=== PATIENT | female | born 1950 | race Hispanic/Latino ===

== ENCOUNTER 2016-12-28 07:50 | Outpatient (CLI) | payer MEDICARE, OTHER ==
--- NOTE | 2016-12-28 14:32 | Mammography Report ---
RIGHT DIGITAL SCREENING MAMMOGRAM with CAD: 12/28/16 07:50:00 CLINICAL: Routine screening. Breast cancer survivor status post left mastectomy in 2010. COMPARISON:11/30/15 FINDINGS: The breast is heterogeneously dense, which may obscure small masses. A few benign calcifications.No mass, suspicious architectural distortion or suspicious calcifications. IMPRESSION: No mammographic evidence of malignancy. BI-RADS CATEGORY: 2 -- Benign RECOMMENDATION: Routine screening in one year. ACR BI-RADS MAMMOGRAPHIC CODES: 0 = Needs additional imaging evaluation; 1 = Negative; 2 = Benign; 3 = Probably benign; 4 = Suspicious; 5 = Malignant; 6 = Known biopsy-proven malignancy COMMENT: 1. Dense breast tissue, i.e., adenosis, fibrocystic changes, etc., may obscure an underlying neoplasm. 2. Approximately 10% of cancers are not detected with mammography. 3. A negative mammography report should not delay biopsy if a clinically suspicious mass is present. COMMENT: Patient follow-up letters are generated via our [employer] application.
== END 2016-12-28 07:51 | disposition home or self-care (01) ==
LOC: MAMMO 07:50
PROVIDERS: ATTEND Internal Medicine
DX: Z12.31 Encounter for screening mammogram for malignant neoplasm of breast (principal)
CPT/HCPCS: G0202-52

== ENCOUNTER 2017-12-31 09:16 | Outpatient (CLI) | payer MEDICARE, OTHER ==
--- NOTE | 2017-12-31 14:24 | Mammography Report ---
RIGHT DIGITAL SCREENING MAMMOGRAM : 12/31/17 09:16:00 CLINICAL: Routine screening. Breast cancer survivor status post left mastectomy. COMPARISON:12/28/16 FINDINGS: The breast is heterogeneously dense, which may obscure small masses. A few benign calcifications and stable mild skin thickening of the inferior breast.No mass, architectural distortion or suspicious calcifications. IMPRESSION: No mammographic evidence of malignancy. BI-RADS CATEGORY: 2 -- Benign RECOMMENDATION: Routine screening in one year. ACR BI-RADS MAMMOGRAPHIC CODES: 0 = Needs additional imaging evaluation; 1 = Negative; 2 = Benign; 3 = Probably benign; 4 = Suspicious; 5 = Malignant; 6 = Known biopsy-proven malignancy COMMENT: 1. Dense breast tissue, i.e., adenosis, fibrocystic changes, etc., may obscure an underlying neoplasm. 2. Approximately 10% of cancers are not detected with mammography. 3. A negative mammography report should not delay biopsy if a clinically suspicious mass is present. COMMENT: Patient follow-up letters are generated via our [employer] application.
== END 2017-12-31 09:17 | disposition home or self-care (01) ==
LOC: MAMMO 09:16
PROVIDERS: ATTEND Internal Medicine
DX: Z12.31 Encounter for screening mammogram for malignant neoplasm of breast (principal)

== ENCOUNTER 2019-01-01 08:29 | Outpatient (CLI) | payer MEDICARE, OTHER ==
--- NOTE | 2019-01-01 10:01 | Mammography Report ---
Screening right mammogram: Cancer survivor with left mastectomy. Routine views of the right breast demonstrates an intermediate fibroglandular pattern with no suspicious findings and no interval changes when compared to prior exams dating back to December 2016. CAD used. Impression: Stable right mammogram. Recommendation: Annual mammogram followup. BI-RADS CATEGORY: 1 = Negative ACR BI-RADS MAMMOGRAPHIC CODES: 0 = Needs additional imaging evaluation; 1 = Negative; 2 = Benign; 3 = Probably benign; 4 = Suspicious; 5 = Malignant; 6 = Known biopsy-proven malignancy COMMENT: 1. Dense breast tissue, i.e., adenosis, fibrocystic changes, etc., may obscure an underlying neoplasm. 2. Approximately 10% of cancers are not detected with mammography. 3. A negative mammography report should not delay biopsy if a clinically suspicious mass is present.
== END 2019-01-01 08:30 | disposition home or self-care (01) ==
LOC: MAMMO 08:29
PROVIDERS: ATTEND Internal Medicine
DX: Z12.31 Encounter for screening mammogram for malignant neoplasm of breast (principal)

== ENCOUNTER 2019-03-24 08:41 | Outpatient (CLI) | payer MEDICARE, OTHER ==
--- NOTE | 2019-03-24 12:28 | Nuclear Medicine Report ---
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 TECHNIQUE: 25 mCi of Tc-99m MDP were injected IV. Whole body images were obtained. COMPARISON: No relevant prior imaging study available. FINDINGS: Skeletal Structures: Symmetric and homogeneous uptake. Mild degenerative uptake in the shoulders, kne es and ankles.. Skeletal Lesions: None. Soft Tissues: Normal. Kidneys: Normal, symmetric activity. Additional Findings: None. IMPRESSION: No evidence for metastatic disease to the bones on bone scan.. Signer Name: Kristopher Hartley Jr, MD Signed: 03/24/2019 12:24 PM Workstation Name: [id number]
== END 2019-03-24 08:42 | disposition home or self-care (01) ==
LOC: NM 08:41
PROVIDERS: ATTEND Internal Medicine Hematology & Oncology
DX: C50.412 Malignant neoplasm of upper-outer quadrant of left female breast (principal); I10 Essential (primary) hypertension
CPT/HCPCS: 78306; A9503

== ENCOUNTER 2020-02-01 08:58 | Outpatient (CLI) | payer MEDICARE, OTHER ==
--- NOTE | 2020-02-01 09:54 | Mammography Report ---
DIGITAL SCREENING MAMMOGRAM WITH CAD, 02/01/2020 INDICATION: Routine screening mammography. TECHNIQUE: Digital right 2D mammography was obtained in the craniocaudal and mediolateral oblique pr ojections. This examination was interpreted with the benefit of Computer-Aided Detection analysis. COMPARISON: 01/01/2019, 12/31/2017 FINDINGS: Breast Density: There are scattered areas of fibroglandular density. There is no evidence of dominant mass, suspicious calcifications or architectural distortion in the r ight breast. No interval change. IMPRESSION: No evidence of malignancy. Follow up recommendation: Routine yearly BI-RADS Category 1: Negative. A "normal" or negative report should not discourage follow up or biopsy of a clinically significant f inding. A written summary of these findings will be mailed to the patient. The patient will be entered into a mammography reporting system which will generate a reminder letter for the patient's next appointmen t at the appropriate interval. The [employer] recommends yearly mammograms starting at age 40 and continuing as l rhonda as a woman is in good health. Breast MRI is recommended for women with an approximate 20-25% or greater lifetime risk of breast cancer, including women with a strong family history of breast or ova michelle cancer or who have been treated for Hodgkin's disease. Signer Name: Briseyda Moreno MD Signed: 02/01/2020 9:50 AM Workstation Name: [id number]
== END 2020-02-01 08:59 | disposition home or self-care (01) ==
LOC: MAMMO 08:58
PROVIDERS: ATTEND Internal Medicine
DX: Z12.31 Encounter for screening mammogram for malignant neoplasm of breast (principal); N64.89 Other specified disorders of breast

== ENCOUNTER 2021-02-01 08:50 | Outpatient (CLI) | payer MEDICARE, OTHER ==
--- NOTE | 2021-02-01 15:31 | Mammography Report ---
DIGITAL SCREENING MAMMOGRAM WITH CAD, 02/01/2021 CLINICAL INFORMATION / INDICATION: Routine screening mammography. Left mastectomy. TECHNIQUE: Digital right 2D mammography was obtained in the craniocaudal and mediolateral oblique pr ojections. This examination was interpreted with the benefit of Computer-Aided Detection analysis. COMPARISON: 02/01/20, 01/01/19 FINDINGS: Breast Density: There are scattered areas of fibroglandular density. No dominant mass, suspicious calcifications, or architectural distortion in either breast. IMPRESSION: No mammographic evidence of malignancy. No significant change. Follow up recommendation: Routine yearly BI-RADS Category 1: Negative. A "normal" or negative report should not discourage follow up or biopsy of a clinically significant f inding. A written summary of these findings will be mailed to the patient. The patient will be entered into a mammography reporting system which will generate a reminder letter for the patient's next appointmen t at the appropriate interval. The [employer] recommends yearly mammograms starting at age 40 and continuing as l rhonda as a woman is in good health. Breast MRI is recommended for women with an approximate 20-25% or greater lifetime risk of breast cancer, including women with a strong family history of breast or ova michelle cancer or who have been treated for Hodgkin's disease. Signer Name: Valencia Nuñez MD Signed: 02/01/2021 3:27 PM Workstation Name: [id number]
== END 2021-02-01 08:51 | disposition home or self-care (01) ==
LOC: MAMMO 08:50
PROVIDERS: ATTEND Internal Medicine
DX: Z12.31 Encounter for screening mammogram for malignant neoplasm of breast (principal); N64.89 Other specified disorders of breast

== ENCOUNTER 2021-03-28 08:54 | Outpatient (CLI) | payer MEDICARE, OTHER ==
--- NOTE | 2021-03-28 11:07 | Ultrasound Report ---
US soft tissue head and neck INDICATION / CLINICAL INFORMATION: SWELLING BILATERAL CLAVICLE. COMPARISON: None FINDINGS: Along the left clavicle there is a borderline enlarged lymph node measuring approximately 0.9 x 0.6 x 0.8 cm which demonstrates mildly thickened cortex measuring 3 mm. Otherwise imaging of the bilateral supraclavicular region demonstrates normal subcutaneous echotexture without evidence of mass, focal fluid collection or adenopathy. Incidental scanning of the thyroid gland demonstrates multiple subcentimeter nodules. IMPRESSION: 1. There is a borderline enlarged lymph node along the left supraclavicular region which demonstrates a mildly thickened cortex up to 3 mm. This is nonspecific and may be reactive. Recommend follow-up u ltrasound of the left supraclavicular region in 6 months to assess change. Signer Name: Ayaan Waters DO Signed: 03/28/2021 11:01 AM Workstation Name: [id number]
--- NOTE | 2021-03-29 07:43 | Mammography Report ---
RIGHT DIGITAL DIAGNOSTIC MAMMOGRAM WITH CAD CONVENTIONAL, 03/28/2021 RIGHT LIMITED BREAST ULTRASOUND CLINICAL INFORMATION / INDICATION: Pain RIGHT BREAST HARDNESS TECHNIQUE: Digital right mammographic imaging was performed. Limited ultrasound was performed. This e xamination was interpreted with the benefit of Computer-Aided Detection (CAD) analysis. COMPARISON: 02/01/2021, 02/01/2020 FINDINGS: Breast Density: There are scattered areas of fibroglandular density. MAMMOGRAPHIC FINDINGS: No dominant mass, suspicious calcifications, or architectural distortion in ei ther breast. ULTRASOUND FINDINGS: Targeted ultrasound evaluation was performed of the area of interest. Sonograp hic evaluation of the right breast in the areas of concern demonstrate normal fibroglandular tissue w ithout evidence of mass, focal fluid collection or adenopathy. IMPRESSION: No mammographic or sonographic evidence of malignancy. Follow up recommendation: Routine yearly BI-RADS Category 1: Negative. A "normal" or negative report should not discourage follow up or biopsy of a clinically significant f inding. A written summary of these findings will be mailed to the patient. The patient will be entered into a mammography reporting system which will generate a reminder letter for the patient's next appointmen t at the appropriate interval. According to the [employer], yearly mammograms are recommended starting at age 40 and continuing as long as a woman is in good health. Breast MRI is recommended for women with an emilie roximately 20-25% or greater lifetime risk of breast cancer, including women with a strong family his tory of breast or ovarian cancer and women who have been treated for Hodgkin's disease. Signer Name: Ayaan Waters DO Signed: 03/29/2021 7:39 AM Workstation Name: [id number]
== END 2021-03-28 08:55 | disposition home or self-care (01) ==
LOC: US 08:54
PROVIDERS: ATTEND Internal Medicine Hematology & Oncology
DX: C50.412 Malignant neoplasm of upper-outer quadrant of left female breast (principal); E04.2 Nontoxic multinodular goiter; I10 Essential (primary) hypertension
CPT/HCPCS: 76536

== ENCOUNTER 2021-09-07 12:38 | Outpatient (CLI) | payer MEDICARE, OTHER ==
--- NOTE | 2021-09-07 13:29 | XRay Report ---
CHEST 2 VIEWS INDICATION / CLINICAL INFORMATION: COUGH. COMPARISON: Chest x-ray 03/11/2011 FINDINGS: SUPPORT DEVICES: Catheter along the left aortic margin demonstrates little change in position. HEART / MEDIASTINUM: No significant abnormality. LUNGS / PLEURA: No significant pulmonary or pleural abnormality. No pneumothorax. ADDITIONAL FINDINGS: No significant additional findings. IMPRESSION: 1. No active cardiopulmonary disease. 2. Stable positioning of catheter fragment along the left margin of the aorta. Signer Name: Rodo Bean II, MD Signed: 09/07/2021 1:24 PM Workstation Name: [id number]
== END 2021-09-07 12:39 | disposition home or self-care (01) ==
LOC: XRAY 12:38
PROVIDERS: ATTEND Internal Medicine Hematology & Oncology
DX: C50.412 Malignant neoplasm of upper-outer quadrant of left female breast (principal); M81.0 Age-related osteoporosis without current pathological fracture; I10 Essential (primary) hypertension; R07.81 Pleurodynia; R22.9 Localized swelling, mass and lump, unspecified; Z17.0 Estrogen receptor positive status [ER+]
CPT/HCPCS: 71046

== ENCOUNTER 2022-02-02 09:12 | Outpatient (CLI) | payer MEDICARE, OTHER ==
--- NOTE | 2022-02-05 18:14 | Mammography Report ---
DIGITAL SCREENING MAMMOGRAM WITH CAD, 02/02/2022 CLINICAL INFORMATION / INDICATION: Routine screening mammography. TECHNIQUE: Digital right 2D mammography was obtained in the craniocaudal and mediolateral oblique pr ojections. This examination was interpreted with the benefit of Computer-Aided Detection analysis. COMPARISON: 02/01/2021, 02/01/2020 FINDINGS: Breast Density: There are scattered areas of fibroglandular density. No dominant mass, suspicious calcifications, or architectural distortion in the right breast. No interval change. IMPRESSION: No mammographic evidence of malignancy. Follow up recommendation: Routine yearly screening mammogram. BI-RADS Category 1: NEGATIVE A "normal" or negative report should not discourage follow up or biopsy of a clinically significant f inding. A written summary of these findings will be mailed to the patient. The patient will be entered into a mammography reporting system which will generate a reminder letter for the patient's next appointmen t at the appropriate interval. The [employer] recommends yearly mammograms starting at age 40 and continuing as l rhonda as a woman is in good health. Breast MRI is recommended for women with an approximate 20-25% or greater lifetime risk of breast cancer, including women with a strong family history of breast or ova michelle cancer or who have been treated for Hodgkin's disease. Signer Name: Briseyda Moreno MD Signed: 02/05/2022 6:09 PM Workstation Name: [id number]
== END 2022-02-02 09:13 | disposition home or self-care (01) ==
LOC: MAMMO 09:12
PROVIDERS: ATTEND Internal Medicine
DX: Z12.31 Encounter for screening mammogram for malignant neoplasm of breast (principal)